=== PATIENT | male | born 1975 | race Caucasian/White ===

== ENCOUNTER 2022-01-21 08:28 | Emergency (ER) | payer OTHER ==
[~2022-01-21 08:28] MED LIST: BREO ELLIPTA 11 EACH INH; CARBAMAZEPINE100 MG PO; IMDUR 30MG TABL30 MG PO; METOPROLOL SUCC25 MG PO; NITROQUIK SL0.4 MG SL; TRAMADOL HCL50 MG PO
[2022-01-21 09:47] LABS: BASOPHIL 0.1 % (0-2); EOSINOPHIL 0.1 % (0-5); HCT 39.1 % (42.0-52.0); HGB 13.5 g/dl (13.2-18.0); LYMPHOCYTE 3.5 % (15-48); MCH 30.5 pg (25.0-31.0); MCHC 34.5 g/dL (32.0-36.0); MCV 88.5 fL (78.0-100.0); MONOCYTE 4.3 % (0-12); MPV 10.5 fL (6.0-9.5); NRBC 0; PLT 221 K/uL (150-400); RBC 4.42 M/uL (4.70-6.00); RDW 12.5 % (11.5-14.0); WBC 17.8 K/uL (4.0-10.5)
[2022-01-21 10:08] LABS: NEUTROPHIL 91.5 % (41-80)
[2022-01-21 10:10] LABS: ALBUMIN 3.6 g/dL (3.4-5.0); BILIRUBIN - TOTAL 0.5 mg/dL (0.2-1.0); BUN/CREAT RATIO (CALC) 10.5 RATIO; CREATININE 0.76 mg/dL (0.67-1.17); GLOBULIN (CALCULATION) 4.3 g/dL; POTASSIUM 3.9 mmol/L (3.5-5.1); TOTAL PROTEIN 7.9 g/dL (6.4-8.2)
[2022-01-21 10:18] LABS: CKMB 3.9 ng/mL (0.0-3.6); LACTIC ACID 1.1 mmol/L (0.4-1.9)
== END 2022-01-21 11:46 | disposition home or self-care (01) ==
LOC: FER 08:28
PROVIDERS: Emergency Medicine
DX: J44.1 Chronic obstructive pulmonary disease with (acute) exacerbation (principal); I11.0 Hypertensive heart disease with heart failure; I50.9 Heart failure, unspecified; E11.9 Type 2 diabetes mellitus without complications; Z88.5 Allergy status to narcotic agent; Z88.6 Allergy status to analgesic agent; Z88.8 Allergy status to other drugs, medicaments and biological substances; Z20.822 Contact with and (suspected) exposure to COVID-19
CPT/HCPCS: 36415; 71046; 80053; 82553; 83605; 83880; 84484; 85025; 85379; 87040; 93005; U0002